=== PATIENT | female | born 1950 | race Caucasian/White ===

== ENCOUNTER → 2018-08-06 | Outpatient (CLI) | payer MEDICARE, BC, SELFPAY ==
[2018-08-06 15:50] LABS: Absolute Lymphocyte Count 1.89 X10^3/ul (0.83-4.51); Basophil# 0.03 X10^3/uL; Basophil% 0.4 % (0-1); Eosinophil# 0.09 X10^3/uL; Eosinophils% 1.1 % (0-5); Hematocrit 47.1 % (37-47); Hemoglobin 15.7 g/dl (12.0-15.0); Lymphocyte # 1.89 X10^3/ul (4.0); Lymphocyte % 23.8 % (19-41); Mean Corp Hgb Conc 33.3 g/gl (32-36); Mean Corpuscular Hgb 32.4 pg (27.0-32.0); Mean Corpuscular Volume 97.3 fL (81-99); Mean Platelet Vol. 10.4 fl (6.2-12.0); Monocyte# 0.96 X10^3/uL; Monocyte% 12.1 % (0-10); Neutrophil # 4.95 X10^3/uL (2.7-7.7); Neutrophil % 62.5 % (47-70); Platelet Count 278 K/mm3 (150-450); RBC Distribution Width CV 12.5 % (11.6-14.6); RBC Distribution Width SD 44.3 fl (35.1-43.9); Red Blood Count 4.84 M/mm3 (4.2-5.4); White Blood Count 7.9 K/mm3 (4.4-11.0)
[2018-08-06 15:52] LABS: POSITIVE COUNT NO; POSITIVE DIFFERENTIAL NO; POSITIVE MORPHOLOGY NO
[2018-08-06 16:04] LABS: ALB/GLOB Ratio 1.2 RATIO (0.9-2.4); AST(SGOT) 23 U/L (15-37); Alanine Aminotransfer ALT/SGPT 34 U/L (13-56); Albumin, Serum 4.2 g/dL (3.2-5.0); Alkaline Phosphatase 68 U/L (45-117); Anion Gap 8 (5-15); BUN 18 mg/dL (7-18); BUN/Creat Ratio 16.2 RATIO (10-20); Calcium,Total 9.6 mg/dL (8.5-10.1); Chloride 106 mmol/L (98-107); Cholesterol 220 mg/dL (200); Creatinine, Serum 1.11 mg/dL (0.55-1.02); EST Glomerular Filtration Rate 52 mL/min (>60); Est Glom Filt Rate - Afr Amer 63 mL/min (>60); Free T3 3.1 pg/mL (2.18-3.98); Globulin 3.5 g/dL (2.2-4.2); Glucose 99 mg/dL (74-106); High Density Lipoprotein 50 mg/dL; Potassium 4.4 mmol/L (3.5-5.1); Protein, Total 7.7 g/dL (6.4-8.2); Sodium Level 141 mmol/L (136-145); T4 Free Direct 1.08 ng/dL (0.76-1.46); Thyroid Stim Hormone (TSH) 3.61 uIU/mL (0.358-3.74); Triglycerides 82 mg/dL; Very Low Density Lipoprotein 16 mg/dL (5-40)
== END | disposition home or self-care (01) ==
LOC: BFHLAB 13:31
PROVIDERS: Family Provider Family Medicine; PCP Family Medicine; Visit Provider Family Medicine
DX: E78.5 Hyperlipidemia, unspecified (principal); D64.9 Anemia, unspecified; R53.83 Other fatigue; Z51.81 Encounter for therapeutic drug level monitoring
CPT/HCPCS: 36415; 80053; 80061; 84439; 84443; 84481; 85025

== ENCOUNTER → 2018-10-17 | Outpatient (CLI) | payer MEDICARE, BC, SELFPAY ==
[2015-07-29 08:56] VITALS: BMI 34.7
[2018-10-17 12:51] LABS: Free T3 2.3 pg/mL (2.18-3.98); T4 Free Direct 0.99 ng/dL (0.76-1.46); Thyroid Stim Hormone (TSH) 2.29 uIU/mL (0.358-3.74)
== END | disposition home or self-care (01) ==
LOC: LAB.FUTURE 09:22
PROVIDERS: Family Provider Family Medicine; PCP Family Medicine; Visit Provider Family Medicine
DX: E03.9 Hypothyroidism, unspecified (principal)
CPT/HCPCS: 36415; 84439; 84443; 84481

== ENCOUNTER 2020-04-14 12:59 | Outpatient (RCR) | payer MEDICARE, OTHER, SELFPAY ==
[2015-07-29 08:56] VITALS: BMI 34.7
[2020-04-14] MEDS: COVID-19 VACC, MRNA(PFIZER)/PF 30 MCG/0.3 ML SYRINGE IM (18:42)
== END 2020-04-14 23:59 ==
LOC: IMMUN 12:59
PROVIDERS: PCP Family Medicine; Visit Provider Family Medicine
DX: Z23 Encounter for immunization (principal)
CPT/HCPCS: 0001A; 91300

== ENCOUNTER 2022-05-30 09:28 | Day surgery (SDC) | payer MEDICARE, OTHER, SELFPAY ==
[2022-05-30] VITALS (7 sets, daily range): BP systolic 89–109; BP diastolic 53–72; PULSE 65–74; RESP 14–16; TEMP 36.1–36.9; O2SAT 96–100; BMI 30.5
--- NOTE | 2022-05-30 10:03 | PCM.HP.BLA ---
History and Physical Date of Admission: 05/30/22 72 F who presents to the office today for Follow up. [facility] established 09.29.21 with interest for EsoGuard screening. Reflux has been an ongoing issue for her for which she takes pantoprazole 40mg QD which is effective, though had issue with esophageal fullness. ?EsoGuard?09.29.21 with QNS. ?EsoGuard?10.27.21 and positive. Reports she is doing well. Daily heartburn continues to be a difficulty for which she uses pantoprazole 40mg QD which is helpful but does have emesis approximately once a month dependent on diet. ROS Const Constitutional: No fatigue ENT ENT: No difficulty swallowing Gastro GI: Positive for heartburn and vomiting; No abdominal pain, belching, bloating, change in bowel habits, change in stool character, coffee ground emesis, constipation, cramping, diarrhea, difficulty swallowing, feeling full early, excessive flatus, incontinent of stools, Vomiting blood/hematemesis, Blood in stool, loose stools, Black,tarry stools, nausea/dyspepsia, pain with swallowing or other Musc Musculoskeletal: Positive for joint pain, Arthritis and sciatica Skin Skin: No yellowing of the eye or itchy eyes Psych Psychiatric: No anxiety and Positive for depression Endo Endocrine: No fatigue Aller/Imm Allergy/Immunologic: No itchy eyes Suhail/Lymp Hematologic/Lymphatic: Positive for easy bruising; No easy bleeding Exam Const General: healthy appearing and comfortable Quality Reporting Tobacco Screening ([facility] 138) Smoking Status: Current every day smoker Assessment and Plan Assessment and Plan (1) GERD (gastroesophageal reflux disease): ?Status:?Chronic ?Plan: EsoGuard screening is positive.? We will schedule her for an EGD to screen for Nam's esophagus.? She was explained alternatives, risk, benefits infection, sepsis, perforation, need for emergent surgery.? She will have an? ASA 2.? We will pantoprazole to 40 mg p.o. 2 times a day until she undergoes an upper endoscopy. ? ? ? Medications: New pantoprazole 40 mg? PO DAILY 90 tabs 2RF ? ? I have examined the patient and the H&P has been reviewed. There are no clinical changes since date of exam.
[2022-05-30] MEDS: Lactated Ringers 1,000 ML 15 ML IV (10:10)
--- NOTE | 2022-05-30 10:30 | EGD_PTH ---
PATIENT: ALEN LANDERS LOC: EN U#:[id number] AGE/SX: 72/F ROOM: RE05/30/[address]: Dr. Vinh Johnson DO : 1950 BED: DIS: 05/30/2022 SPEC #: [id number] RECD: 05/30/22 12:56 STATUS: MASOOD REQ #: [id number] IGNACIO: 05/30/22 10:[address]: Vinh Jonhson DEPT: SURGICAL PATHOLOGY RECD BY: Kali Singletary ENTERED: 05/30/22 13:42 SP TYPE: EGD BIOPSY OT DR: Dr. 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 Moderate chronic inflammation. Negative for dysplasia. See comment. SUZY:janusz 05/31/2022 COMMENT The specimen predominantly consists of gastric mucosa. Alcian blue/PAS stain with matched control is used in the evaluation of the specimen. MICROSCOPIC DESCRIPTION Slides are reviewed. GROSS DESCRIPTION Received in fixative is one container labeled with the patient's name and designated distal esophagus. The specimen consists of multiple irregular fragments of light wesley soft tissue that in aggregate measure 1.0 x 0.3 x 0.1 cm. The specimen is totally submitted in one cassette. / SUZY:janusz 05/30/2022 TC:3 CPT: 60703, 35600
--- NOTE | 2022-05-30 11:00 | OP.EGD_ITS ---
Patient Name: Kristi Leija Procedure Date: 05/30/2022 10:39 AM Date of : 1950 Age: 72 Procedure: Upper GI endoscopy Indications: Heartburn Providers: Vinh Johnson DO Referring MD: Vinh Johnson DO Medicines: Monitored Anesthesia Care Patient Profile: This is a 72 year old female. Refer to note in patient chart for documentation of history and physical. Patient has symptoms of chronic heartburn. Complications: No immediate complications. Procedure: Pre-Anesthesia Assessment: - Prior to the procedure, a History and Physical was performed, and patient medications and allergies were reviewed. The risks and benefits of the procedure and the sedation options and risks were discussed with the patient. All questions were answered and informed consent was obtained. Patient identification and proposed procedure were verified by the physician. Mental Status Examination: normal. Respiratory Examination: clear to auscultation. CV Examination: normal. Prophylactic Antibiotics: The patient does not require prophylactic antibiotics. Prior Anticoagulants: The patient has taken no previous anticoagulant or antiplatelet agents. After reviewing the risks and benefits, the patient was deemed in satisfactory condition to undergo the procedure. The anesthesia plan was to use monitored anesthesia care (MAC). Immediately prior to administration of medications, the patient was re-assessed for adequacy to receive sedatives. The heart rate, respiratory rate, oxygen saturations, blood pressure, adequacy of pulmonary ventilation, and response to care were monitored throughout the procedure. The physical status of the patient was re-assessed after the procedure. After obtaining informed consent, the endoscope was passed under direct vision. Throughout the procedure, the patient's blood pressure, pulse, and oxygen saturations were monitored continuously. The Endoscope was introduced through the mouth, and advanced to the second part of duodenum. The upper GI endoscopy was accomplished without difficulty. The patient tolerated the procedure well. Scope In: 10:48:00 AM Scope Out: 10:51:56 AM Total Procedure Duration Time 0 hours 3 minutes 56 seconds Findings: LA Grade B (one or more mucosal breaks greater than 5 mm, not extending between the tops of two mucosal folds) esophagitis with no bleeding was found 35 to 38 cm from the incisors. Biopsies were taken with a cold forceps for histology. Verification of patient identification for the specimen was done. Estimated blood loss was minimal. A medium-sized hiatal hernia was present. No other significant abnormalities were identified in a careful examination of the stomach. No gross lesions were noted in the first portion of the duodenum. Impression: - LA Grade B reflux esophagitis. Biopsied. - Medium-sized hiatal hernia. - No gross lesions in the first portion of the duodenum. Recommendation: - Discharge patient to home. - Resume previous diet. - Continue present medications. - Await pathology results. Procedure Code(s): --- Professional --- 72222, Esophagogastroduodenoscopy, flexible, transoral; with biopsy, single or multiple CPT copyright 2017 [employer]. All rights reserved. The codes documented in this report are preliminary and upon rn endocrinology review may be revised to meet current compliance requirements. Vinh Johnson DO 05/30/2022 10:59:55 AM This report has been signed electronically. Number of Addenda: 0 Note Initiated On: 05/30/2022 10:39 AM
--- NOTE | 2022-05-30 11:01 | OP.CCLET_ITS ---
05/30/2022 Velia Moise [address] [facility] [place] [address] Re : Upper GI endoscopy procedure for Kristi Leija Dear Dr. Moise This procedure was performed on Monday, May 30, 2022. My impressions and recommendations are as follows: Impressions : - LA Grade B reflux esophagitis. Biopsied. - Medium-sized hiatal hernia. - No gross lesions in the first portion of the duodenum. Recommendations : - Discharge patient to home. - Resume previous diet. - Continue present medications. - Await pathology results. My findings are described in the full procedure note, which is enclosed. If I can be of further assistance, please feel free to contact me at . Sincerely, Vinh Johnson, 05/30/2022 10:59:55 AM This report has been signed electronically.
== END 2022-05-30 11:37 | disposition home or self-care (01) ==
LOC: EN 09:31 → AC 09:33
PROVIDERS: PCP Family Medicine; Referring Provider Family Medicine; Visit Provider Internal Medicine Gastroenterology
PROC: 0DJ08ZZ Inspection of Upper Intestinal Tract, Via Natural or Artificial Opening Endoscopic (ICD-10-PCS; CPT 43235; principal; 2022-05-30 10:25)
DX: K22.70 Barrett's esophagus without dysplasia (principal); K21.00 Gastro-esophageal reflux disease with esophagitis, without bleeding; F17.200 Nicotine dependence, unspecified, uncomplicated; K44.9 Diaphragmatic hernia without obstruction or gangrene; I10 Essential (primary) hypertension; Z79.899 Other long term (current) drug therapy; E78.00 Pure hypercholesterolemia, unspecified
CPT/HCPCS: 43239; 88305; 88313; J7120; J2405

== ENCOUNTER → 2022-07-12 | Outpatient (CLI) | payer MEDICARE, OTHER, SELFPAY ==
[2022-07-12 18:23] LABS: Absolute Lymphocyte Count 2.36 X10^3/uL (0.83-4.51); Absolute Neutrophil Count 6.9 X10^3/uL (2.0-7.7); Basophil% 0.9 % (0-1); Eosinophil# 0.19 X10^3/uL; Eosinophils% 1.8 % (0-5); Hematocrit 44.9 % (37-47); Hemoglobin 15.3 g/dL (12.0-15.0); Lymphocyte # 2.36 X10^3/ul (0.83-4.51); Lymphocyte % 21.9 % (19-41); Mean Corp Hgb Conc 34.1 g/dL (32-36); Mean Corpuscular Hgb 33.4 pg (27.0-32.0); Monocyte% 11.1 % (0-10); NRBC Flagged by Analyzer 0 % (0-5); Neutrophil % 63.9 % (47-70); Platelet Count 336 K/mm3 (150-450); RBC Distribution Width CV 11.9 % (11.6-14.6); RBC Distribution Width SD 43.2 fl (35.1-43.9); Red Blood Count 4.58 M/mm3 (4.2-5.4); White Blood Count 10.8 K/mm3 (4.4-11.0)
[2022-07-12 18:39] LABS: ALB/GLOB Ratio 1.1 RATIO (0.9-2.4); AST(SGOT) 21 U/L (15-37); Alanine Aminotransfer ALT/SGPT 24 U/L (13-56); Albumin, Serum 3.9 g/dL (3.2-5.0); Alkaline Phosphatase 71 U/L (45-117); Anion Gap 7 (5-15); BUN 19 mg/dL (7-18); BUN/Creat Ratio 17.6 RATIO (10-20); Calcium,Total 9.5 mg/dL (8.5-10.1); Chloride 107 mmol/L (98-107); Creatinine, Serum 1.08 mg/dL (0.55-1.02); EST Glomerular Filtration Rate 53 mL/min (>60); Est Glom Filt Rate - Afr Amer 64 mL/min (>60); Globulin 3.6 g/dL (2.2-4.2); Glucose 93 mg/dL (74-106); Iron 161 ug/dL (50-170); Potassium 4.3 mmol/L (3.5-5.1); Protein, Total 7.5 g/dL (6.4-8.2); Sodium Level 141 mmol/L (136-145)
== END | disposition home or self-care (01) ==
LOC: BFHLAB 15:08
PROVIDERS: PCP Family Medicine; Visit Provider Family Medicine
DX: R53.83 Other fatigue (principal); Z51.81 Encounter for therapeutic drug level monitoring; D50.9 Iron deficiency anemia, unspecified
CPT/HCPCS: 36415; 80053; 83540; 85025

== ENCOUNTER → 2022-07-19 | Outpatient (CLI) | payer MEDICARE, OTHER, SELFPAY ==
--- NOTE | 2022-07-19 14:34 | BI_ITS ---
MAMMOGRAPHY - BILATERAL SCREENING REASON FOR EXAM: Female, 72 years old. Routine annual screening examination. PERTINENT HISTORY: Non-contributory. TECHNIQUE: Digital bilateral breast finesse (3D mammographic acquisition) in the CC and MLO projections. 2-D mediolateral oblique (MLO) and craniocaudad (CC) views of both breasts were obtained. CAD: Full Field Digital Mammography with Computer Added Detection was performed. COMPARISON: Comparison is made with a prior examination of September 20, 2014 and August 13, 2013. FINDINGS: Breast Composition: There are scattered areas of fibroglandular density. There are no dominant masses or suspicious calcifications. Stable benign-appearing bilateral axillary lymph nodes. Stable scattered macrocalcifications. No other significant abnormalities are identified. There has been no significant change since the prior study. BI/SCRN MAMM (CAD)W/FINESSE BILAT IMPRESSION: Stable bilateral screening mammogram. Yearly follow-up mammogram recommended. (A) ASSESSMENT CATEGORY: BIRADS Category 2: Benign. A letter regarding these results will be sent to the patient by the facility within 30 days. Approximately 10% of breast cancers are not detected by mammography. A normal mammogram should not delay biopsy of a clinically suspicious abnormality. [id number] Electronically Signed: Viet Mcdermott MD at 15:19 EDT ,
== END | disposition home or self-care (01) ==
LOC: OPBI 14:32
PROVIDERS: PCP Family Medicine; Referring Provider Family Medicine; Visit Provider Family Medicine
DX: Z12.31 Encounter for screening mammogram for malignant neoplasm of breast (principal)
CPT/HCPCS: 77063; 77067

== ENCOUNTER → 2023-08-26 | Outpatient (CLI) | payer MEDICARE, OTHER, SELFPAY ==
[2023-08-26 15:31] LABS: Absolute Lymphocyte Count 1.48 X10^3/uL (0.83-4.51); Absolute Neutrophil Count 4.5 X10^3/uL (2.0-7.7); Basophil# 0.06 X10^3/uL; Basophil% 0.9 % (0-1); Eosinophil# 0.19 X10^3/uL; Eosinophils% 2.7 % (0-5); Hematocrit 43.1 % (37-47); Hemoglobin 14.3 g/dL (12.0-15.0); Lymphocyte # 1.48 X10^3/ul (0.83-4.51); Lymphocyte % 21.2 % (19-41); Mean Corp Hgb Conc 33.2 g/dL (32-36); Mean Corpuscular Hgb 32.9 pg (27.0-32.0); Mean Corpuscular Volume 99.3 fL (81-99); Mean Platelet Vol. 10.1 fl (6.2-12.0); Monocyte# 0.77 X10^3/uL; NRBC Flagged by Analyzer 0 % (0-5); Neutrophil # 4.46 X10^3/uL (2.7-7.7); Neutrophil % 64.1 % (47-70); Platelet Count 289 K/mm3 (150-450); RBC Distribution Width SD 44.4 fl (35.1-43.9); Red Blood Count 4.34 M/mm3 (4.2-5.4)
[2023-08-26 16:12] LABS: ALB/GLOB Ratio 0.9 RATIO (0.9-2.4); AST(SGOT) 22 U/L (15-37); Alanine Aminotransfer ALT/SGPT 25 U/L (13-56); Albumin, Serum 3.5 g/dL (3.2-5.0); Alkaline Phosphatase 58 U/L (45-117); Anion Gap 7 (5-15); BUN 24 mg/dL (7-18); BUN/Creat Ratio 20.5 RATIO (10-20); CRP 4.16 mg/L (0.0-3.0); Calcium,Total 9.2 mg/dL (8.5-10.1); Chloride 108 mmol/L (98-107); Creatinine, Serum 1.17 mg/dL (0.55-1.02); EST Glomerular Filtration Rate 48 mL/min (>60); Est Glom Filt Rate - Afr Amer 58 mL/min (>60); Free T3 2.1 pg/mL (2.18-3.98); Globulin 3.7 g/dL (2.2-4.2); Glucose 106 mg/dL (74-106); Potassium 4.4 mmol/L (3.5-5.1); Protein, Total 7.2 g/dL (6.4-8.2); Sodium Level 138 mmol/L (136-145); T4 Free Direct 0.98 ng/dL (0.76-1.46); Thyroid Stim Hormone (TSH) 2.06 uIU/mL (0.358-3.74)
[2023-08-26 16:50] LABS: Erythrocyte Sedimentation Rate 10 mm/hr (0-30)
== END | disposition home or self-care (01) ==
LOC: BFHLAB 13:27
PROVIDERS: PCP Family Medicine; Referring Provider Family Medicine; Visit Provider Family Medicine
DX: R53.83 Other fatigue (principal); Z51.81 Encounter for therapeutic drug level monitoring; M25.50 Pain in unspecified joint; M79.10 Myalgia, unspecified site; E03.9 Hypothyroidism, unspecified
CPT/HCPCS: 36415; 80053; 84439; 84443; 84481; 85025; 85652; 86140

== ENCOUNTER → 2024-07-27 | Outpatient (CLI) | payer MEDICARE, OTHER, SELFPAY ==
[2024-07-27 12:29] LABS: Absolute Lymphocyte Count 1.31 X10^3/uL (0.83-4.51); Absolute Neutrophil Count 6.2 X10^3/uL (2.0-7.7); Basophil# 0.07 X10^3/uL; Basophil% 0.8 % (0-1); Eosinophil# 0.21 X10^3/uL; Eosinophils% 2.4 % (0-5); Hematocrit 42.8 % (37-47); Hemoglobin 14.4 g/dL (12.0-15.0); Lymphocyte # 1.31 X10^3/ul (0.83-4.51); Mean Corp Hgb Conc 33.6 g/dL (32-36); Mean Corpuscular Hgb 32.9 pg (27.0-32.0); Mean Corpuscular Volume 97.7 fL (81-99); Mean Platelet Vol. 9.9 fl (6.2-12.0); Monocyte# 0.88 X10^3/uL; Monocyte% 10.1 % (0-10); NRBC Flagged by Analyzer 0 % (0-5); Neutrophil # 6.21 X10^3/uL (2.7-7.7); Neutrophil % 71.4 % (47-70); Platelet Count 322 K/mm3 (150-450); RBC Distribution Width CV 12.6 % (11.6-14.6); RBC Distribution Width SD 44.9 fl (35.1-43.9); Red Blood Count 4.38 M/mm3 (4.2-5.4); White Blood Count 8.7 K/mm3 (4.4-11.0)
[2024-07-27 12:46] LABS: Iron 67 ug/dL (50-170)
--- OUTSIDE RECORDS SUMMARY | 2024-07-27 22:48 | XMS RPT_ITS | CCD ---
Author Organization [facility] Care Team Providers Care Seam Feller Name Role Phone Velia Johnson DO Primary Care Provider [phone] NIKITA BELL Attending Unavailable SWETA MATA JR Referring Unavailable VELIA JOHNSON Primary Care Unavailable VELIA JOHNSON Primary Care Unavailable Jose Maria, Dr. Gunn Primary Care Provider [phone] Jose Maria, Dr. Gunn Referring Provider Friend, Dr. Justice Attending Provider Friend, Dr. Justice Other Provider Jose Maria, Dr. Gunn Primary Care Provider Jose Maria, Dr. Gunn Referring Provider Friend, Dr. Justice Attending Provider Brent Menendez Attending Unavailable Malys, Velia Primary Care Unavailable Malys, Velia Referring Unavailable Malys, Velia Attending Unavailable Malys, Velia Primary Care Unavailable Malys, Velia Primary Care Unavailable Referred, Self Referring Unavailable Referred, Self Attending Unavailable Allergies Allergy Classification Reported Allergen(s) Allergy Type Date of Onset Reaction(s) Facility (1 source) Influenza Virus Vaccines Drug Allergy 2 Unknown [facility] (2 sources) [id number] ; Translations: [[id number] C] Propensity to adverse reactions to drug 2 Intolerance [facility] (2 sources) Influenza Vaccines Allergy to substance 3 NEEDS FOLLOW-UP [facility] (1 source) Influenza Virus Vaccines Drug allergy (disorder) 3 [facility] Repository Medications Current Medications Medication Drug Class(es) Dates Sig (Normalized) Sig (Original) biotin 5 mg oral capsule (2 sources) Start: 05-25-2022 take 5 mg by mouth once daily Biotin Active 5 MG PO DAILY May 25, 2022 12:00am docusate sodium 50 mg oral capsule (4 sources) Start: 05-25-2022 take 1 capsule by mouth twice daily Docusate Sodium (Stool Softener) 50 mg Capsule Active 50 MG PO TWICE A DAY May 25, 2022 12:00am Start: 05-17-2015 End: 09-29-2021 Docusate Sodium (Stool Softe ner) 50 MG capsule Discontinued 100 MG PO DAILY May 17, 2015 12:00am September 29, 2021 11:32am DULoxetine 60 mg delayed release oral capsule (5 sources) Serotonin and Norepinephrine Reuptake Inhibitor Start: 05-17-2015 take 60 mg by mouth twice daily Duloxetine Active 60 MG PO TWICE A DAY September 29, 2021 11:31am Start: 05-17-2015 End: 09-29-2021 take 80 mg by mouth once daily Duloxetine Discontinued 80 MG PO DAILY May 17, 2015 12:00am September 29, 2021 11:33am Comment on above: Take 60 mg by mouth twice daily. lisinopril 10 mg oral tablet (5 sources) Angiotensin Converting Enzyme Inhibitor Start: 05-17-2015 take 10 mg by mouth twice daily Lisinopril Active 10 MG PO TWICE A DAY September 29, 2021 11:31am Start: 05-17-2015 End: 09-29-2021 take 10 mg by mouth once daily Lisinopril Discontinued 10 MG PO DAILY May 17, 2015 12:00am September 29, 2021 11:33am Comment on above: Take 10 mg by mouth twice daily. meclizine hydrochloride 25 mg oral tablet (3 sources) Antiemetic Start: 09-30-19 take 25 mg by mouth once daily Meclizine Active 25 MG PO DAILY September 29, 2021 12:00am Comment on above: Take by mouth. mecobalamin 1 mg chewable tablet (2 sources) Start: 05-26-19 23 take 1 tablet by mouth once daily Mecobalamin (Vitamin B12) (B12 Active) 1,000 mcg Tablet,Chewable Active 1000 MCG PO DAILY May 25, 2022 12:00am meloxicam 15 mg oral tablet (5 sources) Nonsteroidal Anti-inflammatory Drug Start: 05-17-19 16 End: 09-30-19 22 take 15 mg by mouth once daily Meloxicam Active 15 MG PO DAILY September 29, 2021 11:32am phenylephrine hydrochloride 25 mg/ml ophthalmic solution (1 source) alpha-1 Adrenergic Agonist Start: 02-19-19 End: 02-20-19 PHENYLephrine 2.5 % 1 Drop (AK-DILATE, FRANKLIN-SYNEPHRINE) proparacaine hydrochloride 5 mg/ml ophthalmic solution (1 source) Local Anesthetic Start: 02-19-19 End: 02-20-19 proparacaine 0.5 % 1 Drop (ALCAINE) tropicamide 10 mg/ml ophthalmic solution (1 source) Anticholinergic Start: 02-19-19 End: 02-20-19 tropicamide 1 % 1 Drop (MYDRIACYL) Completed/Discontinued Medications Medication Drug Class(es) Dates Sig (Normalized) Sig (Original) acetaminophen 325 mg / oxyCODONE hydrochloride 5 mg oral tablet (2 sources) Opioid Agonist Start: 6 End: 2 take 1 tablet by mouth four times daily as needed Oxycodone-Acetaminoph en Discontinued 1 - 2 TABLET PO 4 TIMES DAILY NEEDED July 29, 2015 1:33pm September 28, 2021 5:30pm clindamycin 300 mg oral capsule (2 sources) Lincosamide Antibacterial Start: 6 End: 2 take 1 capsule by mouth three times daily Clindamycin Hcl (Cleocin) 300 MG capsule Discontinued 300 MG PO THREE TIMES A DAY July 29, 2015 12:00am September 28, 2021 5:30pm cyanocobalamin, vitamin B-12, (VITAMIN B-12 ORAL) (1 source) cyanocobalamin, vitamin B-12, (VITAMIN B-12 ORAL) Take by mouth. 0 Active Comment on above: Take by mouth. dexamethasone 0.001 mg/mg / neomycin 0.0035 mg/mg / polymyxin b 10 unt/mg ophthalmic ointment (4 sources) Aminoglycoside Antibacterial, Polymyxin-class Antibacterial, Corticosteroid Start: 6 End: 2 Neomycin-Polymyxin B-Dexameth (Maxitrol) 3.5 GM ointment Discontinued 1 APPLIC Each Eye TWICE A DAY July 29, 2015 1:36pm September 29, 2021 11:32am diazePAM 5 mg oral tablet (2 sources) Benzodiazepine Start: 6 End: 2 take 5 mg by mouth four times daily as needed Diazepam Discontinued 5 MG PO 4 TIMES DAILY NEEDED July 29, 2015 1:33pm September 28, 2021 5:30pm diclofenac sodium 0.01 mg/mg topical gel (1 source) Nonsteroidal Anti-inflammatory Drug diclofenac (VOLTAREN ) 1 % topical gel Apply to affected area four times daily. 0 Active Comment on above: Apply to affected ar ea four times daily. glycerin 2 mg/ml / hypromellose 2 mg/ml / polyethylene glycol 400 10 mg/ml ophthalmic solution (4 sources) Non-Standardized Chemical Allergen Start: 6 End: 2 take 1 mL into the eye(s) at bedtime Peg 743-Wlvlepswffwv-Kmgf bita (Artificial Tears(Yd-Mmpb-Xfqt)) 15 ML drops Discontinued 15 ML Each Eye AT BEDTIME July 29, 2015 1:36pm September 29, 2021 11:32am lactobacillus acidophilus [id number] unt / pectin 100 mg oral tablet (2 sources) Start: 6 End: 2 Acidophilus-Pectin, Sutton Discontinued 1 EACH PO TWICE A DAY July 29, 2015 12:00am September 29, 2021 11:32am methylPREDNISolone 4 mg oral tablet (2 sources) Corticosteroid Start: 6 End: 2 Methylprednisolone Discontinued 4 MG PO DIRECTED July 29, 2015 12:00am September 28, 2021 5:30pm take as directed MULTIVIT,[id number] ITK-CQ10 ORAL (1 source) MULTIVIT,MIN52-F OLIC- VITK-CQ10 ORAL Take by mouth. 0 Active Comment on above: Take by mouth. multivit-min/ferrous fumarate (MULTI VITAMIN ORAL) (1 source) multivit-min/lakshmi laney fumarate (MULTI VITAMIN ORAL) Take by mouth. 0 Active Comment on above: Take by mouth. Multivitamin With Folic Acid (Thera) 1 TABLET tablet (2 sources) Start: 6 End: 2 take 1 tablet by mouth once daily Multivitamin With Folic Acid (Thera) 1 TABLET tablet Discontinued 1 TABLET PO DAILY May 17, 2015 12:00am September 29, 2021 11:32am nystatin 100 unt/mg topical ointment (1 source) Polyene Antifungal nystatin (MYC OSTATIN) ointment Apply to affected area twice daily. 0 Active Comment on above: Apply to affected ar ea twice daily. omeprazole 20 mg delayed release oral capsule (2 sources) Proton Pump Inhibitor Start: 6 End: 2 take 20 mg by mouth once daily Omeprazole Discontinued 20 MG PO DAILY May 17, 2015 12:00am September 29, 2021 11:32am pantoprazole 40 mg delayed release oral tablet (5 sources) Proton Pump Inhibitor Start: 2 End: 3 take 40 mg by mouth once daily Pantoprazole Discontinued 40 MG PO DAILY September 29, 2021 12:00am March 22, 2022 4:37pm triamcinolone-niacinam sandor 0.1-4 % cream (1 source) triamcinolone-ni acina mide 0.1-4 % cream Apply to affected area. 0 Active Comment on above: Apply to affected ar ea. vitamin b6 100 mg oral tablet (2 sources) Start: 6 End: 2 take 100 mg by mouth once daily Pyridoxine (Vitamin B6) Discontinued 100 MG PO DAILY May 17, 2015 12:00am September 29, 2021 11:32am Problems Problem Classification Problem Date Documented Date Episodic/Chronic Cataract (2 sources) Bilateral senile combined form cataracts of eyes; Translations: [Combined forms of age-related cataract, bilateral] Onset: 02-19-2022 Chronic Esophageal disorders (9 sources) Gastroesophageal reflux disease; Translations: [Gastro-esophageal reflux disease without esophagitis] 06-14-2022 Chronic Essential hypertension (2 sources) Essential hypertension; Translations: [Essential (primary) hypertension] Onset: 02-19-2022 Chronic Inflammation; infection of eye (except that caused by tuberculosis or sexually transmitteddisease) (2 sources) Bilateral punctate keratitis of eyes; Translations: [Punctate keratitis, bilateral] Onset: 02-19-2022 Chronic Malaise and fatigue (1 source) Other fatigue; Translations: [Other fatigue] Onset: 09-09-2023 Episodic Osteoarthritis (2 sources) Arthritis; Translations: [Unspecified osteoarthritis, unspecified site] Onset: 02-19-2022 Chronic Other eye disorders (2 sources) Tear film insufficiency; Translations: [Dry eye syndrome of bilateral lacrimal glands] Onset: 02-19-2022 Episodic Other eye disorders (2 sources) Dermatochalasis of left upper eyelid; Translations: [Dermatochalasis of left upper eyelid] 06-19-2015 Episodic Other eye disorders (2 sources) Entropion of right upper eyelid; Translations: [Unspecified entropion of right upper eyelid] 10-09-2015 Episodic Other eye disorders (2 sources) Dermatochalasis of right upper eyelid; Translations: [Dermatochalasis of right upper eyelid] 09-29-2021 Episodic Other eye disorders (2 sources) Ptosis of right upper eyelid; Translations: [Unspecified ptosis of right eyelid] 09-29-2021 Episodic Other eye disorders (2 sources) Ptosis of eyelid; Translations: [Unspecified ptosis of bilateral eyelids] 09-29-2021 Episodic Substance-related disorders (2 sources) Smoker; Translations: [Nicotine dependence, unspecified, uncomplicated] 09-29-2021 Chronic Superficial injury; contusion (2 sources) Injury of globe of eye; Translations: [Injury of conjunctiva and corneal abrasion without foreign body, right eye, initial encounter] 10-09-2015 Episodic Results Test Name Value Interpretation Reference Range Facility CBC W/Diff, Automatedon 08-11 Absolute Lymph 1.48 X10 3/uL Normal 0.83-4.51 [facility] Comment on above: Performed By: #### L 501.93990, L501.9520, L100.0100, L501.6710, L506.0400, L101.9900, L500.4050 #### [facility] [address] [place], [address] Absolute Neut 4.5 X10 3/uL Normal 2.0-7.7 [facility] Comment on above: Performed By: #### L 501.23448, L501.9520, L100.0100, L501.6710, L506.0400, L101.9900, L500.4050 #### [facility] [address] [place], [address] Basophils/100 WBC (Bld) 0.9 % Normal 0-1 [facility] Comment on above: Performed By: #### L 501.91810, L501.9520, L100.0100, L501.6710, L506.0400, L101.9900, L500.4050 #### [facility] [address] [place], [address] Eosinophils/100 WBC (Bld) 2.7 % Normal 0-5 [facility] Comment on above: Performed By: #### L 501.47560, L501.9520, L100.0100, L501.6710, L506.0400, L101.9900, L500.4050 #### [facility] [address] [place], [address] Erythrocyte distribution width (RBC) [Ratio] 12.0 % Normal 11.6-14.6 [facility] Comment on above: Performed By: #### L 501.59423, L501.9520, L100.0100, L501.6710, L506.0400, L101.9900, L500.4050 #### [facility] [address] [place], [address] Hematocrit (Bld) [Volume fraction] 43.1 % Normal 37-47 [facility] Comment on above: Performed By: #### L 501.56666, L501.9520, L100.0100, L501.6710, L506.0400, L101.9900, L500.4050 #### [facility] [address] [place], [address] Hemoglobin (Bld) [Mass/Vol] 14.3 g/dL Normal 12.0-15.0 [facility] Comment on above: Performed By: #### L 501.10091, L501.9520, L100.0100, L501.6710, L506.0400, L101.9900, L500.4050 #### [facility] [address] [place], [address] IG% 0.100 Normal 0.0-0.9 [facility] Comment on above: Result Comment: IG% - Immature Granulocytes (promyelocytes, myelocytes and metamyelocytes) > 1% indicates that a LEFT SHIFT is Present. Performed By: #### L 501.12119, L501.9520, L100.0100, L501.6710, L506.0400, L101.9900, L500.4050 #### [facility] [address] [place], [address] Lymphocytes/100 WBC (Bld) 21.2 % Normal 19-41 [facility] Comment on above: Performed By: #### L 501.52072, L501.9520, L100.0100, L501.6710, L506.0400, L101.9900, L500.4050 #### [facility] [address] [place], [address] MCH (RBC) [Entitic mass] 32.9 pg High 27.0-32.0 [facility] Comment on above: Performed By: #### L 501.69858, L501.9520, L100.0100, L501.6710, L506.0400, L101.9900, L500.4050 #### [facility] [address] [place], [address] MCHC (RBC) [Mass/Vol] 33.2 g/dL Normal 32-36 [facility] Comment on above: Performed By: #### L 501.95168, L501.9520, L100.0100, L501.6710, L506.0400, L101.9900, L500.4050 #### [facility] [address], [address] MCV (RBC) [Entitic vol] 99.3 fL High 81-99 [facility] Comment on above: Performed By: #### L 501.16787, L501.9520, L100.0100, L501.6710, L506.0400, L101.9900, L500.4050 #### [facility] [address], [address] Monocytes/100 WBC (Bld) 11.0 % High 0-10 [facility] Comment on above: Performed By: #### L 501.75102, L501.9520, L100.0100, L501.6710, L506.0400, L101.9900, L500.4050 #### [facility] [address] [place], [address] Neutrophils/100 WBC (Bld) 64.1 % Normal 47-70 [facility] Comment on above: Performed By: #### L 501.21595, L501.9520, L100.0100, L501.6710, L506.0400, L101.9900, L500.4050 #### [facility] [address], [address] Nucleated RBC (Bld) [#/Vol] 0 10*3/uL Normal 0-5 [facility] Comment on above: Performed By: #### L 501.88995, L501.9520, L100.0100, L501.6710, L506.0400, L101.9900, L500.4050 #### [facility] [address] [place], [address] Platelet mean volume (Bld) [Entitic vol] 10.1 fL Normal 6.2-12.0 [facility] Comment on above: Performed By: #### L 501.16365, L501.9520, L100.0100, L501.6710, L506.0400, L101.9900, L500.4050 #### [facility] [address] [place], [address] Platelets (Bld) [#/Vol] 289 10*3/uL Normal 150-450 [facility] Comment on above: Performed By: #### L 501.90667, L501.9520, L100.0100, L501.6710, L506.0400, L101.9900, L500.4050 #### [facility] [address] [place], [address] RBC (Bld) [#/Vol] 4.34 10*6/uL Normal 4.2-5.4 [facility] Comment on above: Performed By: #### L 501.12529, L501.9520, L100.0100, L501.6710, L506.0400, L101.9900, L500.4050 #### [facility] [address] [place], [address] RDW SD 44.4 fl High 35.1-43.9 [facility] Comment on above: Performed By: #### L 501.98297, L501.9520, L100.0100, L501.6710, L506.0400, L101.9900, L500.4050 #### [facility] [address] [place], [address] WBC (Bld) [#/Vol] 7.0 10*3/uL Normal 4.4-11.0 [facility] Comment on above: Performed By: #### L 501.69595, L501.9520, L100.0100, L501.6710, L506.0400, L101.9900, L500.4050 #### [facility] [address] [place], [address] Absolute Neut Normal 2.0-7.7 [facility] Comment on above: Result Comment: . Performed By: #### L 101.9900, L100.0100, L500.4050 #### [facility] [address] [place], [address] HCT Normal 37-47 [facility] Comment on above: Result Comment: . Performed By: #### L 101.9900, L100.0100, L500.4050 #### [facility] [address] [place], [address] HGB Normal 12.0-15.0 [facility] Comment on above: Result Comment: . Performed By: #### L 101.9900, L100.0100, L500.4050 #### [facility] [address] [place], [address] MCH Normal 27.0-32.0 [facility] Comment on above: Result Comment: . Performed By: #### L 101.9900, L100.0100, L500.4050 #### [facility] [address] [place], [address] MCHC Normal 32-36 [facility] Comment on above: Result Comment: . Performed By: #### L 101.9900, L100.0100, L500.4050 #### [facility] [address] [place], [address] MCV Normal 81-99 [facility] Comment on above: Result Comment: . Performed By: #### L 101.9900, L100.0100, L500.4050 #### [facility] [address] [place], [address] NEUT% Normal 47-70 [facility] Comment on above: Result Comment: . Performed By: #### L 101.9900, L100.0100, L500.4050 #### [facility] [address] [place], [address] PLT Normal 150-450 [facility] Comment on above: Result Comment: . Performed By: #### L 101.9900, L100.0100, L500.4050 #### [facility] [address] [place], [address] RBC Normal 4.2-5.4 [facility] Comment on above: Result Comment: . Performed By: #### L 101.9900, L100.0100, L500.4050 #### [facility] [address] [place], [address] RDW CV Normal 11.6-14.6 [facility] Comment on above: Result Comment: . Performed By: #### L 101.9900, L100.0100, L500.4050 #### [facility] [address] [place], [address] RDW SD Normal 35.1-43.9 [facility] Comment on above: Result Comment: . Performed By: #### L 101.9900, L100.0100, L500.4050 #### [facility] [address] [place], [address] WBC Normal 4.4-11.0 [facility] Comment on above: Result Comment: . Performed By: #### L 101.9900, L100.0100, L500.4050 #### [facility] [address] [place], [address] CRPon 08-26-2023 C-REACTIVE PROT 4.16 mg/L High 0.0-3.0 [facility] Comment on above: Result Comment: C-Re active Protein (CRP) provides useful information for the diagnosis, therapy and monitoring of inflammatory processes and associated diseases. For the evaluation of Relative Risk for Cardiovascular Disease, a High Sensitivity CRP (HSCRP) should be ordered. Performed By: #### L 501.01254, L501.9520, L100.0100, L501.6710, L506.0400, L101.9900, L500.4050 #### [facility] [address] [place], [address] Comprehensive Metabolic Prof wyon 08-26-2023 Albumin [Mass/Vol] 3.5 g/dL Normal 3.2-5.0 [facility] Comment on above: Performed By: #### L 501.74264, L501.9520, L100.0100, L501.6710, L506.0400, L101.9900, L500.4050 #### [facility] [address] [place], [address] Albumin/Globulin [Mass ratio] 0.9 {ratio} Normal 0.9-2.4 [facility] Comment on above: Performed By: #### L 501.71330, L501.9520, L100.0100, L501.6710, L506.0400, L101.9900, L500.4050 #### [facility] [address] [place], [address] ALK P 58 U/L Normal 45-117 [facility] Comment on above: Performed By: #### L 501.67350, L501.9520, L100.0100, L501.6710, L506.0400, L101.9900, L500.4050 #### [facility] [address] [place], [address] ALT [Catalytic activity/Vol] 25 U/L Normal 13-56 [facility] Comment on above: Performed By: #### L 501.65131, L501.9520, L100.0100, L501.6710, L506.0400, L101.9900, L500.4050 #### [facility] [address] [place], [address] AST [Catalytic activity/Vol] 22 U/L Normal 15-37 [facility] Comment on above: Performed By: #### L 501.25835, L501.9520, L100.0100, L501.6710, L506.0400, L101.9900, L500.4050 #### [facility] [address] [place], [address] Bilirubin [Mass/Vol] 0.40 mg/dL Normal 0.20-1.00 [facility] Comment on above: Result Comment: For patients on eltrombopag therapy, use of Dimension [place] TBIL is not recommended. Performed By: #### L 501.44223, L501.9520, L100.0100, L501.6710, L506.0400, L101.9900, L500.4050 #### [facility] [address] [place], [address] BUN/CRE 20.5 RATIO High 10-20 [facility] Comment on above: Performed By: #### L 501.57316, L501.9520, L100.0100, L501.6710, L506.0400, L101.9900, L500.4050 #### [facility] [address] [place], [address] CA,Total 9.2 mg/dL Normal 8.5-10.1 [facility] Comment on above: Performed By: #### L 501.12331, L501.9520, L100.0100, L501.6710, L506.0400, L101.9900, L500.4050 #### [facility] [address] [place], [address] Chloride [Moles/Vol] 108 mmol/L High 98-107 [facility] Comment on above: Performed By: #### L 501.23910, L501.9520, L100.0100, L501.6710, L506.0400, L101.9900, L500.4050 #### [facility] [address] [place], [address] CO2 [Moles/Vol] 23.0 mmol/L Normal 21.0-32.0 [facility] Comment on above: Performed By: #### L 501.19270, L501.9520, L100.0100, L501.6710, L506.0400, L101.9900, L500.4050 #### [facility] [address] [place], [address] Creatinine [Mass/Vol] 1.17 mg/dL High 0.55-1.02 [facility] Comment on above: Result Comment: The validity of the calculated GFR GFRAA in patients over 70 years has not been determined. Clinical correlation is essential. Performed By: #### L 501.92191, L501.9520, L100.0100, L501.6710, L506.0400, L101.9900, L500.4050 #### [facility] [address] [place], [address] EST GFR - AA 58 mL/min Low >60 [facility] Comment on above: Result Comment: Afri can Italian GFR Calc Performed By: #### L 501.45994, L501.9520, L100.0100, L501.6710, L506.0400, L101.9900, L500.4050 #### [facility] [address] [place], [address] GAP 7 Normal 5-15 [facility] Comment on above: Performed By: #### L 501.30928, L501.9520, L100.0100, L501.6710, L506.0400, L101.9900, L500.4050 #### [facility] [address] [place], [address] GFR/1.73 sq M.predicted among non-blacks MDRD (S/P/Bld) [Vol rate/Area] 48 mL/min/{1.73_m2} Low >60 [facility] Comment on above: Result Comment: Non- GFR Calc Performed By: #### L 501.76138, L501.9520, L100.0100, L501.6710, L506.0400, L101.9900, L500.4050 #### [facility] [address] [place], [address] Globulin (S) [Mass/Vol] 3.7 g/dL Normal 2.2-4.2 [facility] Comment on above: Performed By: #### L 501.69988, L501.9520, L100.0100, L501.6710, L506.0400, L101.9900, L500.4050 #### [facility] [address] [place], [address] Glucose [Mass/Vol] 106 mg/dL Normal 74-106 [facility] Comment on above: Result Comment: Fast ing Glucose result from 100 to 125 mg/dL suggests IMPAIRED HOMEOSTASIS per A.D.A. criteria. Performed By: #### L 501.89572, L501.9520, L100.0100, L501.6710, L506.0400, L101.9900, L500.4050 #### [facility] [address] [place], [address] Potassium [Moles/Vol] 4.4 mmol/L Normal 3.5-5.1 [facility] Comment on above: Performed By: #### L 501.92898, L501.9520, L100.0100, L501.6710, L506.0400, L101.9900, L500.4050 #### [facility] [address] [place], [address] Sodium [Moles/Vol] 138 mmol/L Normal 136-145 [facility] Comment on above: Performed By: #### L 501.09886, L501.9520, L100.0100, L501.6710, L506.0400, L101.9900, L500.4050 #### [facility] [address] [place], [address] T PROT 7.2 g/dL Normal 6.4-8.2 [facility] Comment on above: Performed By: #### L 501.03211, L501.9520, L100.0100, L501.6710, L506.0400, L101.9900, L500.4050 #### [facility] [address] [place], [address] Urea nitrogen [Mass/Vol] 24 mg/dL High 7-18 [facility] Comment on above: Performed By: #### L 501.60950, L501.9520, L100.0100, L501.6710, L506.0400, L101.9900, L500.4050 #### [facility] [address] [place], [address] ALB Normal 3.2-5.0 [facility] Comment on above: Result Comment: . Performed By: #### L 101.9900, L100.0100, L500.4050 #### [facility] [address] [place], [address] ALK P Normal 45-117 [facility] Comment on above: Result Comment: . Performed By: #### L 101.9900, L100.0100, L500.4050 #### [facility] [address] [place], [address] ALT Normal 13-56 [facility] Comment on above: Result Comment: . Performed By: #### L 101.9900, L100.0100, L500.4050 #### [facility] [address] [place], [address] AST Normal 15-37 [facility] Comment on above: Result Comment: . Performed By: #### L 101.9900, L100.0100, L500.4050 #### [facility] [address] [place], [address] BUN Normal 7-18 [facility] Comment on above: Result Comment: . Performed By: #### L 101.9900, L100.0100, L500.4050 #### [facility] [address] [place], [address] BUN/CRE Normal 10-20 [facility] Comment on above: Result Comment: . Performed By: #### L 101.9900, L100.0100, L500.4050 #### [facility] [address] [place], [address] CA,Total Normal 8.5-10.1 [facility] Comment on above: Result Comment: . Performed By: #### L 101.9900, L100.0100, L500.4050 #### [facility] [address] [place], [address] CL Normal 98-107 [facility] Comment on above: Result Comment: . Performed By: #### L 101.9900, L100.0100, L500.4050 #### [facility] [address] [place], [address] CO2 Normal 21.0-32.0 [facility] Comment on above: Result Comment: . Performed By: #### L 101.9900, L100.0100, L500.4050 #### [facility] [address] [place], [address] CREAT,SERUM Normal 0.55-1.02 [facility] Comment on above: Result Comment: . Performed By: #### L 101.9900, L100.0100, L500.4050 #### [facility] [address] [place], [address] EST GFR Normal >60 [facility] Comment on above: Result Comment: . Performed By: #### L 101.9900, L100.0100, L500.4050 #### [facility] [address] [place], [address] EST GFR - AA Normal >60 [facility] Comment on above: Result Comment: . Performed By: #### L 101.9900, L100.0100, L500.4050 #### [facility] [address] [place], [address] GAP Normal 5-15 [facility] Comment on above: Result Comment: . Performed By: #### L 101.9900, L100.0100, L500.4050 #### [facility] [address] [place], [address] GLU Normal 74-106 [facility] Comment on above: Result Comment: . Performed By: #### L 101.9900, L100.0100, L500.4050 #### [facility] [address] [place], [address] Potassium Normal 3.5-5.1 [facility] Comment on above: Result Comment: . Performed By: #### L 101.9900, L100.0100, L500.4050 #### [facility] [address] [place], [address] T BILI Normal 0.20-1.00 [facility] Comment on above: Result Comment: . Performed By: #### L 101.9900, L100.0100, L500.4050 #### [facility] [address] [place], [address] T PROT Normal 6.4-8.2 [facility] Comment on above: Result Comment: . Performed By: #### L 101.9900, L100.0100, L500.4050 #### [facility] [address] [place], [address] Comprehensive Metabolic Profil Normal 136-145 [facility] Comment on above: Result Comment: . Performed By: #### L 101.9900, L100.0100, L500.4050 #### [facility] [address] [place], [address] Erythrocyte Sed Rateon 08-25 SED RATE 10 mm/hr Normal 0-30 [facility] Comment on above: Performed By: #### L 501.15265, L501.9520, L100.0100, L501.6710, L506.0400, L101.9900, L500.4050 #### [facility] [address] [place], [address] SED RATE Normal 0-30 [facility] Comment on above: Result Comment: . Performed By: #### L 101.9900, L100.0100, L500.4050 #### [facility] [address] [place], [address] Free T3on 08-26-2023 Free T3 [Mass/Vol] 2.1 pg/mL Low 2.18-3.98 [facility] Comment on above: Performed By: #### L 501.50731, L501.9520, L100.0100, L501.6710, L506.0400, L101.9900, L500.4050 #### [facility] [address] [place], [address] T4 Free Directon 08-26-2023 T4 FREE DIRECT 0.98 ng/dL Normal 0.76-1.46 [facility] Comment on above: Performed By: #### L 501.34240, L501.9520, L100.0100, L501.6710, L506.0400, L101.9900, L500.4050 #### [facility] [address] [facility] [place], [address] Thyroid Stim Hormone (TSH)on 08-26-2023 TSH 2.06 uIU/mL Normal 0.358-3.74 [facility] Comment on above: Performed By: #### L 501.49376, L501.9520, L100.0100, L501.6710, L506.0400, L101.9900, L500.4050 #### [facility] [address] [facility] [place], [place], [id number] Absolute lymphocyte countOrd ered By: Dr. Johnson on 07-12-2022 Lymphocytes Auto (Unsp spec) [#/Vol] 2.36 10*3/uL 0.83-4.51 [facility] Basophil percentageOrdered B y: Dr. Johnson on 07-12-2022 Basophils/100 WBC (Bld) 0.9 % 0-1 [facility] Bilirubin [Mass/Vol] 0.50 mg/dL 0.20-1.00 [facility] Comment on above: For patients on eltr ombopag therapy, use of Dimension [place] TBIL is not recommended. Chloride [Moles/Vol] 107 mmol/L 98-107 [facility] Eosinophils/100 WBC (Bld) 1.8 % 0-5 [facility] Glucose [Mass/Vol] 93 mg/dL 74-106 [facility] Neutrophils (Bld) [#/Vol] 6.9 10*3/uL 2.0-7.7 [facility] Neutrophils/100 WBC (Bld) 63.9 % 47-70 [facility] Potassium [Moles/Vol] 4.3 mmol/L 3.5-5.1 [facility] Protein [Mass/Vol] 7.5 g/dL 6.4-8.2 [facility] Sodium [Moles/Vol] 141 mmol/L 136-145 [facility] WBC (Bld) [#/Vol] 10.8 10*3/uL 4.4-11.0 [facility] Blood erythrocytes count (nu mber/volume)Ordered By: Dr. Johnson on 07-12-2022 RBC (Bld) [#/Vol] 4.58 10*6/uL 4.2-5.4 [facility] Blood hemoglobin measurement (mass/volume)Ordered By: Dr. Johnson on 07-12-2022 Hemoglobin (Bld) [Mass/Vol] 15.3 g/dL 12.0-15.0 [facility] Blood lymphocytes/100 leukoc ytesOrdered By: Dr. Johnson on 07-12-2022 Lymphocytes/100 WBC (Bld) 21.9 % 19-41 [facility] Blood monocytes/100 leukocyt esOrdered By: Dr. Johnson on 07-12-2022 Monocytes/100 WBC (Bld) 11.1 % 0-10 [facility] Blood platelet mean volumeOr dered By: Dr. Johnson on 07-12-2022 Platelet mean volume (Bld) [Entitic vol] 10.0 fL 6.2-12.0 [facility] Determination of erythrocyte mean corpuscular volume (MCV)Ordered By: Dr. Johnson on 07-12-2022 MCV (RBC) [Entitic vol] 98.0 fL 81-99 [facility] Hematocrit Auto (Bld) [Volum e fraction]Ordered By: Dr. Johnson on 07-12-2022 Hematocrit (Bld) [Volume fraction] 44.9 % 37-47 [facility] Iron measurement (mass/mass) Ordered By: Dr. Johnson on 07-12-2022 Iron (Unsp spec) [Mass/Mass] 161 ug/dL 50-170 [facility] - Chemistry and C hemistry - challengeOrdered By: Dr. Johnson on 07-12-2022 ALP [Catalytic activity/Vol] 71 U/L 45-117 [facility] ALT [Catalytic activity/Vol] 24 U/L 13-56 [facility] CO2 [Moles/Vol] 27.0 mmol/L 21.0-32.0 [facility] Globulin (S) [Mass/Vol] 3.6 g/dL 2.2-4.2 [facility] Urea nitrogen/Creatinine [Mass ratio] 17.6 mg/mg 10-20 [facility] - Hematology and Cell countsOrdered By: Dr. Johnson on 07-12-2022 Erythrocyte distribution width (RBC) [Entitic vol] 43.2 fL 35.1-43.9 [facility] Erythrocyte distribution width (RBC) [Ratio] 11.9 % 11.6-14.6 [facility] Immature granulocytes/100 WBC (Bld) 0.400 % 0.0-0.9 [facility] Comment on above: IG% - Immature Granu locytes (promyelocytes, myelocytes and metamyelocytes) > 1% indicates that a LEFT SHIFT is Present. MCH (RBC) [Entitic mass] 33.4 pg 27.0-32.0 [facility] Nucleated RBC/100 WBC (Bld) [Ratio] 0 % 0-5 [facility] MCHC Auto (RBC) [Mass/Vol]Or dered By: Dr. Johnson on 07-12-2022 MCHC (RBC) [Mass/Vol] 34.1 g/dL 32-36 [facility] No Panel InformationOrdered By: Dr. Johnson on 07-12-2022 Estimated GFR (MDRD) Amer 64 mL/min >60 [facility] Comment on above: GFR Calc Estimated GFR (MDRD) Non-Af Amer 53 mL/min >60 [facility] Comment on above: Non- GFR Calc Platelets bldOrdered By: Dr. Johnson on 07-12-2022 Platelets (Bld) [#/Vol] 336 10*3/uL 150-450 [facility] Serum or plasma albumin [place] urement (mass/volume)Ordered By: Dr. Johnson on 07-12-2022 Albumin [Mass/Vol] 3.9 g/dL 3.2-5.0 [facility] Serum or plasma albumin/glob ulin mass ratioOrdered By: Dr. Johnson on 07-12-2022 Albumin/Globulin [Mass ratio] 1.1 {ratio} 0.9-2.4 [facility] Serum or plasma calcium [place] urement (mass/volume)Ordered By: Dr. Johnson on 07-12-2022 Calcium [Mass/Vol] 9.5 mg/dL 8.5-10.1 [facility] Serum or plasma creatinine m easurement (mass/volume)Ordered By: Dr. Johnson on 07-12-2022 Creatinine [Mass/Vol] 1.08 mg/dL 0.55-1.02 [facility] Comment on above: The validity of the calculated GFR & GFRAA in patients over 70 years has not been determined. Clinical correlation is essential. Serum or plasma urea nitroge n measurement (mass/volume)Ordered By: Dr. Johnson on 07-12-2022 Urea nitrogen [Mass/Vol] 19 mg/dL 7-18 [facility] Thin prep Papanicolaou smear with manual screeningOrdered By: Dr. Johnson on 07-12-2022 Thin prep Papanicolaou smear with manual screening 21 U/L 15-37 [facility] Thin prep Papanicolaou smear with manual screening 7 5-15 [facility] CNOVon 04-25-2021 CN Office Visit (UCTR) ---- KRISTI LEIJA ([id number]) 1950 F Date Time Provider Department 04/25/21 2:15 PM [facility] During your visit today, we recorded the following information about you: Temperature Pulse Respiration Blood pressure 98.5 degrees 101/minute 18/minute 130/78 Weight 82.6 kg Curtis Zarate APRN.CNP 04/25/2021 2:37 PM Signed Subjective HPI Nontoxic-appearing female presents urgent care chief complaint rash. Duration of symptoms 2 weeks. Associated symptoms pruritic erythematous rash. Patient states first noticed it on her back has since spread to her shoulders neck torso and legs. This is a sporadic rash. States this started shortly after quitting smoking. Has used triamcinolone cream this is helped some. Denies any pain with rash. Denies any recent medication changes or antibiotic use. Denies any systemic symptoms. No known sick contacts. Denies any fever body aches chills productive cough chest pain shortness of breath pleuritic pain hemoptysis change in bowel or bladder habits. Past medical history prescription medication use allergies reviewed. .Patient presents with: Rash: rash on face x 2 weeks History reviewed. No pertinent past medical history. History reviewed. No pertinent surgical history. ALLERGIES Theramine Plus [[id number]] MEDICATIONS DULoxetine (CYMBALTA) 60 mg capsule Duloxetine Hcl Active 80 MG DAILY May 17, 2015 10:46am lisinopril (ZESTRIL, PRINIVIL) 10 mg tablet Lisinopril Active 10 MG DAILY May 17, 2015 10:46am pantoprazole DR (PROTONIX) 40 mg tablet meloxicam (MOBIC) 15 mg tablet History reviewed. No pertinent family history. Social History Tobacco Use - Smoking status: Former Smoker - Smokeless tobacco: Never Used Substance Use Topics - Alcohol use: Not on file - Drug use: Not on file BP 130/78 Pulse 101 Temp 36.9 ?C (98.5 ?F) (Tympanic) Resp 18 Wt 82.6 kg (182 lb) SpO2 99% Hr 78 Review of Systems Constitutional: Negative for chills, fever and malaise/fatigue. HENT: Negative for congestion, ear discharge, ear pain, sinus pain and sore throat. Eyes: Negative for blurred vision, pain, discharge and redness. Respiratory: Negative for cough, hemoptysis, sputum production, shortness of breath, wheezing and stridor. Cardiovascular: Negative for chest pain. Gastrointestinal: Negative for abdominal pain, diarrhea, nausea and vomiting. Musculoskeletal: Negative for myalgias. Skin: Positive for itching and rash. Neurological: Negative for dizziness and headaches. Objective Physical Exam Constitutional: General: She is not in acute distress. Appearance: She is not diaphoretic. HENT: Head: Normocephalic. Mouth/Throat: Mouth: Mucous membranes are moist. Pharynx: Oropharynx is clear. No oropharyngeal exudate or posterior oropharyngeal erythema. Eyes: Conjunctiva/sclera: Conjunctivae normal. Pupils: Pupils are equal, round, and reactive to light. Cardiovascular: Rate and Rhythm: Normal rate and regular rhythm. Heart sounds: Normal heart sounds. Pulmonary: Effort: Pulmonary effort is normal. No tachypnea, accessory muscle usage or respiratory distress. Breath sounds: Normal breath sounds. No stridor. Abdominal: Palpations: Abdomen is soft. Tenderness: There is no abdominal tenderness. Musculoskeletal: Cervical back: Normal range of motion and neck supple. No rigidity or tenderness. Lymphadenopathy: Cervical: No cervical adenopathy. Skin: General: Skin is warm and dry. Comments: Macular papular erythematous rash noted on patient's face neck and lower arms. Areas of rash scattered. No remote redness. No breaks in skin. Areas of excoriation noted from itching. No evidence of bacterial infection. No mucosal membrane involvement. No desquamation of skin. Neurological: Mental Status: She is alert and oriented to person, place, and time. ASSESSMENT/PLAN: 1. Rash - ICD9: 782.1, ICD10: R21 No red flag symptoms noted with rash. Vital signs within normal limits. Nontoxic-appearing. No recent medication changes or antibiotic use. I believe some of this pruritus is coming from quitting smoking. Patiently placed on prednisone burst. Will not take with NSAIDs or Mobic. Patient was educated on supportive therapies. Patient will follow up with primary care provider as needed. Patient was instructed to immediately proceed to emergency room for any new, worsening, or symptoms lasting longer than anticipated. The patient's clinical presentation is otherwise unremarkable at this time. Based on exam and clinical finding, the patient is stable for discharge. Plan of care was discussed with patient. Patient verbalizes understanding and agrees to plan of care. This note was generated using [employer] software. It may contain errors in wording, punctuation, or spelli (more content not included)... Normal [facility] Vital Signs Date Time Vital Sign Value Performing Clinician Barbi josué 05-30-2022 11:14-0400 Body temperature 97 [degF] Dr. Velia Johnson Work Phone: [facility] 05-30-2022 11:14-0400 Diastolic blood pressure 55 mm[Hg] Dr. Velia Johnson Work Phone: [facility] 05-30-2022 11:14-0400 Heart rate 67 /min Dr. Velia Johnson Work Phone: [facility] 05-30-2022 11:14-0400 Respiratory rate 16 /min Dr. Velia Johnson Work Phone: [facility] 05-30-2022 11:14-0400 SaO2% (BldA) [Mass fraction] 97 % Dr. Velia Johnson Work Phone: [facility] 05-30-2022 11:14-0400 Systolic blood pressure 90 mm[Hg] Dr. Velia Johnson Work Phone: [facility] 05-30-2022 09:56-0400 Body height 157.[address] Velia Johnson Work Phone: [facility] 05-30-2022 09:56-0400 Body mass index (BMI) [Ratio] 30.5 kg/m2 Dr. Velia Johnson Work Phone: [facility] 05-30-2022 09:56-0400 Body weight 75.[address] Velia Johnson Work Phone: [facility] Encounters Encounter Date Encounter Type Care Provider Facility Start: 08-26-2023 End: 08-26-2023 ambulatory Velia Johnson Facility:[facility] Start: 04-08-2023 ambulatory Brent Menendez Facility :[facility] Start: 07-19-2022 End: 07-19-[address] Velia Johnson Work Phone: [facility] Work Phone: Start: 07-19-2022 End: 07-19-[address] Velia Johnson Work Phone: [facility] Start: 07-12-2022 End: 07-12-[address] Velia Johnson Work Phone: [facility] Work Phone: Start: 07-12-2022 End: 07-12-[address] Velia Johnson Work Phone: [facility] Start: 06-14-2022 End: 06-14-[address] Velia Johnson Work Phone: [facility] Start: 05-30-2022 Non-patient / Non-visit Dr. Velia Johnson Work Phone: [facility] Start: 05-30-2022 End: 05-30-2022 Admission to same day surgery center Dr. Velia Johnson Work Phone: [facility] Start: 03-22-2022 End: 03-22-[address] Velia Johnson Work Phone: [facility] Start: 02-19-2022 End: 02-19-2022 ambulatory NIKITA BELL Facility:[facility] Start: 02-19-2022 End: 02-19-2022 Patient encounter procedure Nikita Bell MD Work Phone: Ophthalmology Comment on above: Combined forms of ag e-related cataract of both eyes (Primary Dx); Dry eye syndrome of both eyes; Punctate keratitis of both eyes; Essential hypertension; Arthritis Start: 04-25-2021 End: 04-25-2021 ambulatory VELIA JOHNSON Facility:[facility] Procedures Date Procedure Procedure Detail Performing Clinician Start: 07-19-2022 Screening mammography Norma Johnson Work Phone: Plan of Treatment Date Care Activity Detail Author Start: 05-30-2022 Egd transoral biopsy single/multiple EGD BIOPSY SINGLE/MULTIPLE [facility] Start: 05-30-2022 Patient discharge [facility] Start: 02-11-2022 ADVANCE DIRECTIVE DISCUSSION ADVANCE DIRECTIVE DISCUSSION [facility] Start: 02-11-2022 DEPRESSION ASSESSMENT DEPRESSION ASSESSMENT [facility] Start: 08-31-2021 COVID-19 VACCINE (4 - Booster for Pfizer series) COVID-19 VACCINE (4 - Booster for Pfizer series) [facility] Start: 2015 BONE DENSITY BONE DENSITY [facility] Start: 2015 PNEUMOCOCCAL: 65+ (1 - PCV) PNEUMOCOCCAL: 65+ (1 - PCV) [facility] Start: 01-14-2000 SHINGRIX VACCINE (1 of 2) SHINGRIX VACCINE (1 of 2) [facility] Start: 1995 COLOGUARD (FIT-DNA) COLOGUARD (FIT-DNA) [facility] Start: 1995 Colonoscopy COLONOSCOPY [facility] Start: 1995 COLORECTAL CANCER SCREENING COLORECTAL CANCER SCREENING [facility] Start: [address] COLONOGRAPHY [facility] Start: 1995 DIABETES SCREEN DIABETES SCREEN [facility] Start: 1995 FECAL OCCULT BLOOD FECAL OCCULT BLOOD [facility] Start: 1995 LIPID SCREEN LIPID SCREEN [facility] Start: 1995 SIGMOIDOSCOPY SIGMOIDOSCOPY [facility] Start: 1990 Mammography MAMMOGRAM [facility] Start: 1969 Urine microalbumin profile DTAP,TDAP,TD (1 - Tdap) [facility] Start: 01-14-1968 ANNUAL PCP TEAM CHRONIC DISEASE VISIT ANNUAL PCP TEAM CHRONIC DISEASE VISIT [facility] Start: 01-14-1968 BP CONTROLLED (<130/80) BP CONTROLLED (<130/80) [facility] Start: 01-14-1968 HEPATITIS C SCREENING HEPATITIS C SCREENING [facility] Patient referral [facility] Work Phone: [facility] Immunizations Immunization Date Immunization Notes Care Provider [facility] 04-14-2020 Covid (Pfizer) Dr. Velia love Work Phone: [facility] Payers Date Payer Category Payer Unknown [id number] 2023 Self-pay [id number] 2015 Medicare MEDICARE MEDICAR E A AND B [id number] 2015-Present [phone] [place] [address] Medicare [id number] 2015 Medicare [id number] Unknown BRIAN [id number] Unknown [id number] Unknown [id number] Unknown [id number] Social History Date Type Detail Facility Start: 02-19-2022 Tobacco smoking stat [facility] Ex-smoker [facility] History of tobacco use Current smoker [facility] Start: 02-19-2022 Tobacco use and exposure Smokeless tobacco non-user [facility] Start: 1950 Sex Assigned At Not on file [facility] Start: 06-14-2022 Tobacco smoking stat [facility] Unknown if ever smoked [facility] Start: 1950 Sex Assigned At Female [facility] Goals Date Patient Goal Desired Activity /State Mental Status Date Assessment Result Facility 05-30-2022 Cognitive function Level Of Consciousness Drowsy [facility] Work Phone: 05-30-2022 Cognitive function Voice/Name [facility] Work Phone: Progress note 02-19-2022 Note Date & Type Note Facility 02-19-2022 Note HNO ID: [id number] Author: Nikita Bell MD Service: ? Author Type: Physician Type: Progress Notes Filed: 02/19/2022 2:57 PM Note Text: ASSESSMENT/PLAN: 1. Combined forms of age-related cataract of both eyes - ICD9: 366.19, ICD10: H25.813 (primary diagnosis) -Not visually significant/ monitor -patient not having trouble with vision at this time. 2. Dry eye syndrome of both eyes - ICD9: 375.15, ICD10: H04.123 3. 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 4. Essential hypertension - ICD9: 401.9, ICD10: I10 5. Arthritis - ICD9: 716.90, ICD10: M19.90 -continue care with PCP I have confirmed and edited as necessary the relevant ophthalmic history, review of systems, surgical history, and ophthalmological examination findings as obtained by the ophthalmic technical staff. I have seen and examined Kristi Leija. I have discussed the examination findings, diagnosis, and treatment options with Kristi Leija and/or her family. I have also reviewed and agree with the assessment and plan as stated above and agree with all its relevant components. I gave the patient the opportunity to ask questions about the findings, diagnosis, and treatment options. Nikita Bell MD [facility] History of Present illness Narrative 02-19-2022 Nikita Bell MD - 02/19/2022 2:55 PM EST Note Date & Type Note Facility 02-19-2022 History of Presen t illness Narrative ASSESSMENT/PLAN: 1. Combined forms of age-related cataract of both eyes - ICD9: 366.19, ICD10: H25.813 (primary diagnosis) -Not visually significant/ monitor -patient not having trouble with vision at this time. 2. Dry eye syndrome of both eyes - ICD9: 375.15, ICD10: H04.123 3. 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 4. Essential hypertension - ICD9: 401.9, ICD10: I10 5. Arthritis - ICD9: 716.90, ICD10: M19.90 -continue care with PCP I have confirmed and edited as necessary the relevant ophthalmic history, review of systems, surgical history, and ophthalmological examination findings as obtained by the ophthalmic technical staff. I have seen and examined Kristi Leija. I have discussed the examination findings, diagnosis, and treatment options with Kristi Leija and/or her family. I have also reviewed and agree with the assessment and plan as stated above and agree with all its relevant components. I gave the patient the opportunity to ask questions about the findings, diagnosis, and treatment options. Nikita Bell MD documented in this encounter [facility] Instructions 02-19-2022 Patient Instructions Note Date & Type Note Facility 02-19-2022 Instructions Nikita Bell MD - 02/19/2022 2:52 PM EST Begin: Systane Complete Artificial Tears - Use 1 Drop into both eyes three times a day. If you have any questions please contact our office at [phone]. After office hours or on the weekend, please call Dr. Bell on his cell phone at [phone]. documented in this encounter [facility] Progress note 04-25-2021 Note Date & Type Note Facility 04-25-2021 Note HNO ID: [id number] Author: Curtis Zarate APRN.CONTACT CENTER ANALYST Service: ? Author Type: Nurse Practitioner Type: Progress Notes Filed: 04/25/2021 2:37 PM Note Text: Subjective HPI Nontoxic-appearing female presents urgent care chief complaint rash. Duration of symptoms 2 weeks. Associated symptoms pruritic erythematous rash. Patient states first noticed it on her back has since spread to her shoulders neck torso and legs. This is a sporadic rash. States this started shortly after quitting smoking. Has used triamcinolone cream this is helped some. Denies any pain with rash. Denies any recent medication changes or antibiotic use. Denies any systemic symptoms. No known sick contacts. Denies any fever body aches chills productive cough chest pain shortness of breath pleuritic pain hemoptysis change in bowel or bladder habits. Past medical history prescription medication use allergies reviewed. .Patient presents with: Rash: rash on face x 2 weeks History reviewed. No pertinent past medical history. History reviewed. No pertinent surgical history. ALLERGIES Theramine Plus [[id number]] MEDICATIONS DULoxetine (CYMBALTA) 60 mg capsule Duloxetine Hcl Active 80 MG DAILY May 17, 2015 10:46am lisinopril (ZESTRIL, PRINIVIL) 10 mg tablet Lisinopril Active 10 MG DAILY May 17, 2015 10:46am pantoprazole DR (PROTONIX) 40 mg tablet meloxicam (MOBIC) 15 mg tablet History reviewed. No pertinent family history. Social History Tobacco Use - Smoking status: Former Smoker - Smokeless tobacco: Never Used Substance Use Topics - Alcohol use: Not on file - Drug use: Not on file BP 130/78 Pulse 101 Temp 36.9 ?C (98.5 ?F) (Tympanic) Resp 18 Wt 82.6 kg (182 lb) SpO2 99% Hr 78 Review of Systems Constitutional: Negative for chills, fever and malaise/fatigue. HENT: Negative for congestion, ear discharge, ear pain, sinus pain and sore throat. Eyes: Negative for blurred vision, pain, discharge and redness. Respiratory: Negative for cough, hemoptysis, sputum production, shortness of breath, wheezing and stridor. Cardiovascular: Negative for chest pain. Gastrointestinal: Negative for abdominal pain, diarrhea, nausea and vomiting. Musculoskeletal: Negative for myalgias. Skin: Positive for itching and rash. Neurological: Negative for dizziness and headaches. Objective Physical Exam Constitutional: General: She is not in acute distress. Appearance: She is not diaphoretic. HENT: Head: Normocephalic. Mouth/Throat: Mouth: Mucous membranes are moist. Pharynx: Oropharynx is clear. No oropharyngeal exudate or posterior oropharyngeal erythema. Eyes: Conjunctiva/sclera: Conjunctivae normal. Pupils: Pupils are equal, round, and reactive to light. Cardiovascular: Rate and Rhythm: Normal rate and regular rhythm. Heart sounds: Normal heart sounds. Pulmonary: Effort: Pulmonary effort is normal. No tachypnea, accessory muscle usage or respiratory distress. Breath sounds: Normal breath sounds. No stridor. Abdominal: Palpations: Abdomen is soft. Tenderness: There is no abdominal tenderness. Musculoskeletal: Cervical back: Normal range of motion and neck supple. No rigidity or tenderness. Lymphadenopathy: Cervical: No cervical adenopathy. Skin: General: Skin is warm and dry. Comments: Macular papular erythematous rash noted on patient's face neck and lower arms. Areas of rash scattered. No remote redness. No breaks in skin. Areas of excoriation noted from itching. No evidence of bacterial infection. No mucosal membrane involvement. No desquamation of skin. Neurological: Mental Status: She is alert and oriented to person, place, and time. ASSESSMENT/PLAN: 1. Rash - ICD9: 782.1, ICD10: R21 No red flag symptoms noted with rash. Vital signs within normal limits. Nontoxic-appearing. No recent medication changes or antibiotic use. I believe some of this pruritus is coming from quitting smoking. Patiently placed on prednisone burst. Will not take with NSAIDs or Mobic. Patient was educated on supportive therapies. Patient will follow up with primary care provider as needed. Patient was instructed to immediately proceed to emergency room for any new, worsening, or symptoms lasting longer than anticipated. The patient's clinical presentation is otherwise unremarkable at this time. Based on exam and clinical finding, the patient is stable for discharge. Plan of care was discussed with patient. Patient verbalizes understanding and agrees to plan of care. This note was generated using [employer] software. It may contain errors in wording, punctuation, or spelling. Curtis Zarate APRN.[facility] Evaluation note Note Date & Type Note Facility Evaluation note Diagnosis Combined forms of age-related cataract of both eyes- Primary Other and combined forms of senile cataract Dry eye syndrome of both eyes Punctate keratitis of both eyes Punctate keratitis Essential hypertension Unspecified essential hypertension Arthritis Arthropathy, unspecified, site unspecified documented in this encounter [facility] Evaluation note Note Date & Type Note Facility Evaluation note Diagnosis Onset Date GERD (gastroesophageal reflux disease) chronic Nam esophagus chronic GERD (gastroesophageal reflux disease) [facility] Work Phone: Evaluation note Note Date & Type Note Facility Evaluation note Diagnosis Onset Date Nam esophagus chronic GERD (gastroesophageal reflux disease) [facility] Work Phone: Medications Administered Section Active Administered Medications - up to 3 most recent administrations Medication Order MAR Action Action Date Dose Rate Site PHENYLephrine 2.5 % 1 Drop (AK-DILATE, FRANKLIN-SYNEPHRINE) 1 Drop, BOTH EYES, DIRECTED, Starting on Sat02/19/22 at 1430, Until Sat02/20/22 at 0229, Administer for dilation PROTECT FROM LIGHT Given 02/19/2022 2:20 PM EST 1 Drop proparacaine 0.5 % 1 Drop (ALCAINE) 1 Drop, BOTH EYES, DIRECTED, Starting on Sat02/19/22 at 1430, Until Sat02/20/22 at 0229, Administer for pneumo tonometry, tonopen tonometry, or pachymetry. In the event of a proparacaine shortage, administer tetracaine 0.5% ophthalmic drops 1 drop in the left eye as directed for pneumo tonometry, tonopen tonometry, or pachymetry Given 02/19/2022 2:20 PM EST 1 Drop tropicamide 1 % 1 Drop (MYDRIACYL) 1 Drop, BOTH EYES, DIRECTED, Starting on Sat02/19/22 at 1430, Until Sat02/20/22 at 0229, Administer for dilation Given 02/19/2022 2:20 PM EST 1 Drop Summary Purpose Family History No Family History Records Found Relationship Condition Age at Onset Recorded Date/T geovanna mother Arthritis Unknown Diabetes mellitus Unknown Advance Directives No Advanced Directives Records Found Advance Directive Response Recorded Date/ Time Advance Directives Yes July 25 2:14pm Living Will Yes May 25, 2022 11:05am Power of Sash Assembler No May 25 11:05am Chief Complaint and Reason for Visit Chief Complaint FU 2 WK FU Reason for Visit GERD (gastroesophage al reflux disease) Nam esophagus GERD (gastroesophageal reflux disease) Chief Complaint 2 WK FU SCREENING Reason for Visit Nam esophagus GERD (gastroesophageal reflux disease) Additional Source Comments Source Comments (unrecognize d section and content) In the event this informatio n is protected by the Federal Confidentiality of Alcohol and Drug Abuse Patient Records regulations: The Federal rules restrict any use of the information to criminally investigate or prosecute any alcohol or drug abuse patient.[facility] Reason for Visit (unrecogniz ed section and content) Reason Comments Difficulty seeing for near without glass es Eye Discharge Both Eyes For 1 year, mucu s discharge Care Teams (unrecognized sec tion and content) Seam Feller Relationship Specialty Start Date End Date Velia Johnson DO [address] [place] [address] PCP - General Family Medicine 04/25/21 Team Status: Active Member Role Status Dates Dr. Velia Johnson DO Family Provider Active Dr. Velia Johnson DO Primary Care Provider Active Team Status: Inactive Member Role Status Dates Dr. Velia Johnson DO Primary Care Provider, Referring P rovider Active Dr. Vinh Johnson , Attending Provider Active Team Status: Active Member Role Status Dates Dr. Velia Johnson DO Primary Care Provider, Referring P rovider Active Dr. Vinh Johnson DO Attending Provider, Other Prov ider Active Team Status: Inactive Member Role Status Dates Dr. Velia Johnson DO Primary Care Provider, Attending P rovider Active Team Status: Inactive Member Role Status Dates Dr. Velia Johnson DO Primary Care Provide r, Attending Provider, Referring Provider Active INFORMATION SOURCE (unrecogn ized section and content) DATE CREATED AUTHOR 02/20/2022 [facility] DATE CREATED AUTHOR 'S ORGANIZ ATION 09/11/2023 [facility] FOR RECORDS PERTAINING TO PATIENTS WHO ARE OR HAVE BEEN ENROLLED IN A CHEMICAL DEPENDENCY/SUBSTANCEABUSE PROGRAM, SOME INFORMATION MAY BE OMITTED. This clinical summary was aggregated from multiple sources. Caution should be exercised in using it in the provision of clinical care. This summary normalizes information from multiple sources, and as a consequence, information in this document may materially change the coding, format and clinical context of patient data. In addition, data may be omitted in some cases. CLINICAL DECISIONS SHOULD BE BASED ON THE PRIMARY CLINICAL RECORDS. [employer] provides no warranty or guarantee of the accuracy or completeness of information in this document.
[2024-07-28 15:58] LABS: ALB/GLOB Ratio 1.7 RATIO (0.9-2.4); AST(SGOT) 19 U/L (<=31); Alanine Aminotransfer ALT/SGPT 14 U/L (<=34); Albumin, Serum 3.8 g/dL (3.4-4.8); Alkaline Phosphatase 64 U/L (35-104); Anion Gap 9 (5-15); BUN 17 mg/dL (4-19); BUN/Creat Ratio 19.1 RATIO (10-20); Calcium,Total 9.2 mg/dL (7.6-11.0); Carbon Dioxide 24.6 mmol/L (21.0-32.0); Chloride 106 mmol/L (98-108); Cholesterol 179 mg/dL (<=200); Creatinine, Serum 0.87 mg/dL (0.70-1.20); EST Glomerular Filtration Rate 70 (>60); Globulin 2.3 g/dL (2.2-4.2); Glucose 97 mg/dL (70-99); High Density Lipoprotein 44 mg/dL; Low Density Lipoprotein Calc. 120 mg/dL; Potassium 4.8 mmol/L (3.3-5.1); Protein, Total 6.1 g/dL (5.9-8.4); Sodium Level 140 mmol/L (133-145); Total Bilirubin 0.27 mg/dL (0.00-1.30); Triglycerides 75 mg/dL; Very Low Density Lipoprotein 15 mg/dL (5-40); cholesterol:hdl ratio screen 4.09
[2024-07-28 16:01] LABS: Ferritin 77 ng/mL (22-378); Free T3 2.2 pg/mL (2.18-3.98); Vitamin B12 625 pg/mL (180-914); Vitamin D,25 Hydroxy 37.4 ng/mL (30-100)
== END | disposition home or self-care (01) ==
LOC: BFHLAB 10:51
PROVIDERS: PCP Family Medicine; Visit Provider Family Medicine
DX: E78.5 Hyperlipidemia, unspecified (principal); E53.8 Deficiency of other specified B group vitamins; E55.9 Vitamin D deficiency, unspecified; R53.83 Other fatigue; Z51.81 Encounter for therapeutic drug level monitoring
CPT/HCPCS: 36415; 80053; 80061; 82306; 82607; 82728; 83540; 84439; 84443; 84481; 85025

== ENCOUNTER → 2025-01-19 | Outpatient (CLI) | payer MEDICARE, OTHER, SELFPAY ==
--- NOTE | 2025-01-19 14:11 | CT_ITS ---
PROCEDURE: LOW DOSE CT LUNG SCREENING 01/19/2025 REASON FOR EXAM: LUNG CANCER SCREENING Current smoker. Patient has smoked quarter pack per day for 30 years. TECHNIQUE: Procedure Code: CTLUNGSCREEN Modality: CT Procedure: LOW DOSE CT LUNG SCREENING Coronal and Sagittal reconstruction series were provided. One or more dose reduction techniques were used (e.g., Automated exposure control, adjustment of the mA and/or kV according to patient size, use of iterative reconstruction technique). REFERENCE LINK: [facility] Lung-RADS RADIATION DOSE SUMMARY: CTDlvol: 3.02 mGy DLP: 102.69 mGycm COMPARISON: None FINDINGS: PULMONARY NODULES: (Only nodules >3mm are reported) Nodules described below are on series 1 unless otherwise specified. Pulmonary Nodules: No suspicious pulmonary nodule is seen. Hardware:None Lymph Nodes:No significant lymph nodes are present. Heart and Vasculature:The heart is nonenlarged.Atherosclerotic calcifications of the thoracic aorta. Thoracic aorta and pulmonary arteries have normal contours; noncontrast technique limits evaluation. Coronary Artery Calcifications: Present Lungs and Airways: Mild emphysematous changes are present. Pleura:No pleural effusion. Upper Abdomen:Unremarkable Bones:Degenerative changes of the thoracic spine. CT/Low Dose CT Lung Screening IMPRESSION: No suspicious nodules are seen. Coronary artery calcification (CAC) is is present Lung-RADS Category: 2 BENIGN (BASED ON IMAGING FEATURES OR INDOLENT BEHAVIOR). RECOMMEND 12-MONTH SCREENING LDCT. Other Significant Findings: Reading Location: [place] [address]
== END | disposition home or self-care (01) ==
LOC: CT 14:11
PROVIDERS: PCP Family Medicine; Referring Provider Nurse Practitioner Family; Visit Provider Nurse Practitioner Family
DX: Z12.2 Encounter for screening for malignant neoplasm of respiratory organs (principal); Z87.891 Personal history of nicotine dependence
CPT/HCPCS: 71271